=== PATIENT | male | born 1965 | race Caucasian/White ===

== ENCOUNTER 2018-05-22 14:02 | Emergency (ER) | payer OTHER ==
[~2018-05-22] VITALS: Ht 177.8 cm; Wt 62.6 kg
[2018-05-22 14:17] LABS: ABSOLUTE NEUTROPHILS 4.2 thou/uL (1.4-8.2); BASOPHILS 2.6 % (0.0-2.0); EOSINOPHILS 0.3 % (0.0-3.0); HEMATOCRIT 38.1 % (42.0-52.0); LYMPHOCYTES 26.2 % (24.0-44.0); MCH 29.9 pg (26.0-34.0); MCV 87.8 fL (80.0-100.0); MONOCYTES 5.7 % (1.0-8.0); PLATELET COUNT 202 thou/uL (150-400); POLYS 65.2 % (36.0-66.0); RBC 4.34 mil/uL (4.50-6.00); RDW 15.3 % (10.5-14.5); WBC 6.4 thou/uL (4.0-11.0)
[2018-05-22 14:25] LABS: CALCIUM 8.3 mg/dL (8.5-10.1); CREATININE 0.7 mg/dL (0.7-1.3); POTASSIUM 3.6 mmol/L (3.5-5.1)
[2018-05-22 14:31] LABS: ALBUMIN 3.2 g/dL (3.4-5.0); TOTAL BILIRUBIN 0.5 mg/dL (<0.1-1.0); TOTAL PROTEIN 6.9 g/dL (6.4-8.2)
[2018-05-22] MEDS ORDERED: SERTRALINE HCL50 MG PO (14:49)
[2018-05-22] MEDS ORDERED: OMEPRAZOLE 20 M20 M1 PO (14:49)
[2018-05-22] MEDS ORDERED: PROZAC20 MG PO (14:49)
[2018-05-22] MEDS ORDERED: PROSCAR 5MG TABL5 MG PO (14:49)
[2018-05-22] MEDS ORDERED: TOPROL XL25 MG PO (14:50)
[2018-05-22] MEDS ORDERED: SPRITAM1000 MG PO (14:50)
[2018-05-22] MEDS ORDERED: B12INJ IM (14:50)
[2018-05-22] MEDS ORDERED: NEURONTIN 300M300 M2 PO (14:50)
[2018-05-22] MEDS ORDERED: UNICOMPLEX M TA1 TA1 PO (14:50)
[2018-05-22] MEDS ORDERED: IBUPROFEN 600600 M1 PO (14:51)
[2018-05-22] MEDS ORDERED: APAP650 PO (14:51)
[2018-05-22] MEDS ORDERED: ATROVENT HFA14 GM INH (14:51)
[2018-05-22] MEDS ORDERED: POTASSIUM20 PO (14:51)
[2018-05-22] MEDS ORDERED: PROAIR HFA8.5 GM INH (14:52)
[2018-05-22 18:35] VITALS: BP 108/76
== END 2018-05-22 18:43 | disposition home or self-care (01) ==
LOC: ER 14:02
PROVIDERS: Emergency Medicine
DX: F10.129 Alcohol abuse with intoxication, unspecified (principal); Y90.8 Blood alcohol level of 240 mg/100 ml or more; L53.9 Erythematous condition, unspecified; F17.210 Nicotine dependence, cigarettes, uncomplicated; Z91.018 Allergy to other foods

== ENCOUNTER 2018-08-10 15:54 | Emergency (ER) | payer OTHER ==
[~2018-08-10] VITALS: Ht 177.8 cm; Wt 63.5 kg
[~2018-08-10 15:54] MED LIST: APAP650 PO; ATROVENT HFA14 GM INH; B12INJ IM; IBUPROFEN 600600 M1 PO; NEURONTIN 300M300 M2 PO; OMEPRAZOLE 20 M20 M1 PO; POTASSIUM20 PO; PROAIR HFA8.5 GM INH; PROSCAR 5MG TABL5 MG PO; PROZAC20 MG PO; SERTRALINE HCL50 MG PO; SPRITAM1000 MG PO; TOPROL XL25 MG PO; UNICOMPLEX M TA1 TA1 PO
[2018-08-10] MEDS ORDERED: LIDOCAINE1 EACH TRANSDERM (20:01)
[2018-08-10 20:19] VITALS: BP 139/85
== END 2018-08-10 20:26 | disposition home or self-care (01) ==
LOC: ER 15:54
DX: S22.42XA Multiple fractures of ribs, left side, initial encounter for closed fracture (principal); F10.129 Alcohol abuse with intoxication, unspecified; Y90.9 Presence of alcohol in blood, level not specified; F17.210 Nicotine dependence, cigarettes, uncomplicated; Z91.018 Allergy to other foods; X58.XXXA Exposure to other specified factors, initial encounter; Y93.89 Activity, other specified; Y92.89 Other specified places as the place of occurrence of the external cause; Y99.8 Other external cause status